=== PATIENT | male | born 1955 | race Caucasian/White ===

== ENCOUNTER 2017-06-25 14:34 | Emergency (ER) | payer SELFPAY ==
[~2017-06-25] VITALS: Ht 172.7 cm; Wt 69.0 kg
[~2017-06-25 14:34] MED LIST: ampicillin PO
[2017-06-25] MEDS ORDERED: IBUPROFEN 600MG TABLET PO ONE (17:45)
[2017-06-25] MEDS ORDERED: ACETAMINOPHEN WITH CODEINE 300/30MG TABLET PO ONE (21:45)
[2017-06-25 22:00] VITALS: BP 131/88
== END 2017-06-25 22:20 | disposition home or self-care (01) ==
LOC: ER 14:34
DX: S22.41XA Multiple fractures of ribs, right side, initial encounter for closed fracture (principal); R22.2 Localized swelling, mass and lump, trunk; I10 Essential (primary) hypertension; J44.9 Chronic obstructive pulmonary disease, unspecified; V89.2XXA Person injured in unspecified motor-vehicle accident, traffic, initial encounter; Y93.89 Activity, other specified; Y92.89 Other specified places as the place of occurrence of the external cause; Y99.8 Other external cause status
CPT/HCPCS: 71010; 71250; 99284